=== PATIENT | male | born 1940 | race Caucasian/White ===

== ENCOUNTER 2023-05-18 16:20 | Outpatient (RCR) | payer MEDICARE, BC ==
[~2023-05-18 16:20] MED LIST: AMIODARONE HCL400 MG PO; ATORVASTATIN CA20 MG PO; AZELASTINE137 MCG/Ac NS; CARBIDOPA/LEVODOPA PO; ELIQUIS5 MG PO; FUROSEMIDE20 MG PO; GLUCOPHAGE PO; KETOCONAZOLE 1120 ML TP; SINGULAIR 110 MG/TAB PO; TADALAFIL5 M1 PO
== END 2023-06-17 | disposition home or self-care (01) ==
LOC: PT
DX: G20 Parkinson's disease (principal); R13.10 Dysphagia, unspecified

== ENCOUNTER → 2023-07-27 | Outpatient (CLI) | payer MEDICARE, BC ==
[2023-07-27 17:18] LABS: BASO # 0.04 K/mm3 (0.02-0.10); EOS % 6.6 % (0.0-4.0); HEMATOCRIT 39.6 % (42.0-52.0); HEMOGLOBIN 12.5 g/dL (13.5-18.0); LYMPH# 1.36 K/mm3 (1.50-4.00); MEAN CELL VOLUME 101 fl (78-100); MEAN CORPUSCULAR HEMOGLOBIN 32 pg (27-31); MEAN CORPUSCULAR HGB CONC 32 g/dL (33-37); MEAN PLATELET VOLUME 9.9 fl (7.4-10.4); MONO # 0.85 K/mm3 (0.20-0.80); NEU # 4.84 K/mm3 (1.40-6.50); PLATELET COUNT 181 K/mm3 (130-400); RED BLOOD COUNT 3.94 M/mm3 (4.20-5.60); RED CELL DISTRIBUTION WIDTH 14.3 % (11.5-14.5); WHITE BLOOD COUNT 7.6 K/mm3 (4.8-10.8)
[2023-07-27 17:24] LABS: ALBUMIN 3.9 g/dL (3.4-4.8); POTASSIUM 4.6 mmol/L (3.5-5.1)
[2023-07-27 17:25] LABS: CALCIUM 10.3 mg/dL (8.3-10.5)
[2023-07-27 17:26] LABS: TOTAL PROTEIN 7.1 g/dL (6.2-8.1)
[2023-07-27 17:28] LABS: TOTAL BILIRUBIN 0.3 mg/dL (0.2-1.2)
== END ==
LOC: LAB 16:44
PROVIDERS: Family Medicine
DX: I48.91 Unspecified atrial fibrillation (principal); I25.10 Atherosclerotic heart disease of native coronary artery without angina pectoris; L21.0 Seborrhea capitis; E78.5 Hyperlipidemia, unspecified; G47.33 Obstructive sleep apnea (adult) (pediatric); M85.80 Other specified disorders of bone density and structure, unspecified site; G20.A2 Parkinson's disease without dyskinesia, with fluctuations; E11.9 Type 2 diabetes mellitus without complications; Z86.711 Personal history of pulmonary embolism

== ENCOUNTER → 2023-11-11 | Outpatient (CLI) | payer MEDICARE, BC ==
[2023-11-11 10:04] LABS: BASO # 0.04 K/mm3 (0.02-0.10); EOS # 0.41 K/mm3 (0.04-0.40); EOS % 6.7 % (0.0-4.0); HEMOGLOBIN 12.2 g/dL (13.5-18.0); LYMPH# 1.03 K/mm3 (1.50-4.00); MEAN CELL VOLUME 98 fl (78-100); MEAN CORPUSCULAR HEMOGLOBIN 31 pg (27-31); MEAN CORPUSCULAR HGB CONC 32 g/dL (33-37); MEAN PLATELET VOLUME 9.8 fl (7.4-10.4); MONO # 0.55 K/mm3 (0.20-0.80); PLATELET COUNT 188 K/mm3 (130-400); RED BLOOD COUNT 3.88 M/mm3 (4.20-5.60); RED CELL DISTRIBUTION WIDTH 13.8 % (11.5-14.5); WHITE BLOOD COUNT 6.2 K/mm3 (4.8-10.8)
[2023-11-11 10:15] LABS: ALBUMIN 3.8 g/dL (3.4-4.8)
[2023-11-11 10:17] LABS: CALCIUM 10.1 mg/dL (8.3-10.5)
[2023-11-11 10:18] LABS: TOTAL PROTEIN 6.7 g/dL (6.2-8.1)
[2023-11-11 10:20] LABS: TOTAL BILIRUBIN 0.5 mg/dL (0.2-1.2)
== END ==
LOC: LAB 09:37
PROVIDERS: Family Medicine
DX: E11.9 Type 2 diabetes mellitus without complications (principal); R20.2 Paresthesia of skin

== ENCOUNTER → 2024-03-15 | Outpatient (CLI) | payer MEDICARE, BC ==
[~2024-03-15] MED LIST changes: +COLCHICINE0.6 M2 PO; +DITROPAN 5MG TAB5 MG PO; +METFORMIN HYDR750 MG PO; +MULTAQ400 M1 PO; +PANTOPRAZOLE SO40 MG PO; +VASCEPA1 GM PO
== END ==
LOC: LAB 14:17
DX: E11.9 Type 2 diabetes mellitus without complications (principal); R05.9 Cough, unspecified

== ENCOUNTER 2024-04-15 11:51 | Emergency (ER) | payer MEDICARE, BC ==
[~2024-04-15] VITALS: Ht 180.3 cm; Wt 103.6 kg
[2024-04-15 13:45] VITALS: BP 135/87
[2024-04-15 14:29] LABS: BASO # 0.01 K/mm3 (0.02-0.10); EOS # 0.09 K/mm3 (0.04-0.40); EOS % 1.2 % (0.0-4.0); HEMATOCRIT 26.8 % (42.0-52.0); HEMOGLOBIN 8.4 g/dL (13.5-18.0); LYMPH# 0.92 K/mm3 (1.50-4.00); MEAN CELL VOLUME 100 fl (78-100); MEAN CORPUSCULAR HEMOGLOBIN 31 pg (27-31); MEAN CORPUSCULAR HGB CONC 31 g/dL (33-37); MEAN PLATELET VOLUME 10.4 fl (7.4-10.4); MONO # 0.95 K/mm3 (0.20-0.80); NEU # 5.67 K/mm3 (1.40-6.50); PLATELET COUNT 162 K/mm3 (130-400); RED BLOOD COUNT 2.69 M/mm3 (4.20-5.60); RED CELL DISTRIBUTION WIDTH 14.7 % (11.5-14.5); WHITE BLOOD COUNT 7.7 K/mm3 (4.8-10.8)
[2024-04-15 14:38] LABS: CALCIUM 10.2 mg/dL (8.3-10.5)
== END 2024-04-15 16:53 | disposition home or self-care (01) ==
LOC: ED 11:51
PROVIDERS: Family Medicine
DX: S80.02XA Contusion of left knee, initial encounter (principal); D63.1 Anemia in chronic kidney disease; E11.22 Type 2 diabetes mellitus with diabetic chronic kidney disease; N18.9 Chronic kidney disease, unspecified; Z79.01 Long term (current) use of anticoagulants; W06.XXXA Fall from bed, initial encounter

== ENCOUNTER → 2024-04-18 | Outpatient (CLI) | payer MEDICARE, BC ==
[2024-04-18 09:44] LABS: ALBUMIN 3.7 g/dL (3.4-4.8)
[2024-04-18 09:46] LABS: BASO # 0.02 K/mm3 (0.02-0.10); CALCIUM 10.4 mg/dL (8.3-10.5); EOS # 0.11 K/mm3 (0.04-0.40); EOS % 1.3 % (0.0-4.0); HEMATOCRIT 25.3 % (42.0-52.0); HEMOGLOBIN 7.9 g/dL (13.5-18.0); LYMPH# 0.98 K/mm3 (1.50-4.00); MEAN CELL VOLUME 100 fl (78-100); MEAN CORPUSCULAR HEMOGLOBIN 31 pg (27-31); MEAN CORPUSCULAR HGB CONC 31 g/dL (33-37); MEAN PLATELET VOLUME 9.9 fl (7.4-10.4); MONO # 1.09 K/mm3 (0.20-0.80); NEU # 6.05 K/mm3 (1.40-6.50); PLATELET COUNT 222 K/mm3 (130-400); RED BLOOD COUNT 2.53 M/mm3 (4.20-5.60); RED CELL DISTRIBUTION WIDTH 14.3 % (11.5-14.5); WHITE BLOOD COUNT 8.3 K/mm3 (4.8-10.8)
[2024-04-18 09:47] LABS: TOTAL PROTEIN 6.5 g/dL (6.2-8.1)
[2024-04-18 09:49] LABS: TOTAL BILIRUBIN 0.7 mg/dL (0.2-1.2)
== END ==
LOC: LAB 09:19
PROVIDERS: Family Medicine
DX: N17.9 Acute kidney failure, unspecified (principal); D64.9 Anemia, unspecified

== ENCOUNTER → 2024-04-19 | Outpatient (CLI) | payer MEDICARE, BC ==
[2024-04-19 14:57] LABS: BASO # 0.04 K/mm3 (0.02-0.10); EOS % 2.4 % (0.0-4.0); HEMOGLOBIN 9.3 g/dL (13.5-18.0); LYMPH# 1.05 K/mm3 (1.50-4.00); MEAN CELL VOLUME 96 fl (78-100); MEAN CORPUSCULAR HEMOGLOBIN 31 pg (27-31); MEAN CORPUSCULAR HGB CONC 32 g/dL (33-37); MEAN PLATELET VOLUME 9.3 fl (7.4-10.4); NEU # 5.68 K/mm3 (1.40-6.50); PLATELET COUNT 221 K/mm3 (130-400); RED BLOOD COUNT 3.03 M/mm3 (4.20-5.60); RED CELL DISTRIBUTION WIDTH 15.6 % (11.5-14.5); WHITE BLOOD COUNT 8.3 K/mm3 (4.8-10.8)
[2024-04-19 15:04] LABS: ALBUMIN 3.5 g/dL (3.4-4.8); SODIUM 137 mmol/L (136-145)
[2024-04-19 15:05] LABS: CALCIUM 10.3 mg/dL (8.3-10.5)
[2024-04-19 15:06] LABS: GLUCOSE 141 mg/dL (75-110); TOTAL PROTEIN 6.3 g/dL (6.2-8.1)
[2024-04-19 15:08] LABS: TOTAL BILIRUBIN 0.8 mg/dL (0.2-1.2)
[2024-04-19 15:12] LABS: AST-SGOT 11 U/L (5-34)
[2024-04-19 15:24] LABS: ALT/SGPT < 6 U/L (0-55); CARBON DIOXIDE 17 mmol/L (23-31)
== END ==
LOC: LAB 14:43
PROVIDERS: Family Medicine
DX: N17.9 Acute kidney failure, unspecified (principal); D64.9 Anemia, unspecified

== ENCOUNTER → 2024-04-25 | Outpatient (CLI) | payer MEDICARE, BC ==
[2024-04-25 16:24] LABS: BASO # 0.03 K/mm3 (0.02-0.10); EOS # 0.39 K/mm3 (0.04-0.40); EOS % 3.7 % (0.0-4.0); HEMATOCRIT 31.1 % (42.0-52.0); HEMOGLOBIN 9.9 g/dL (13.5-18.0); LYMPH# 0.84 K/mm3 (1.50-4.00); MEAN CELL VOLUME 97 fl (78-100); MEAN CORPUSCULAR HEMOGLOBIN 31 pg (27-31); MEAN CORPUSCULAR HGB CONC 32 g/dL (33-37); MEAN PLATELET VOLUME 9.1 fl (7.4-10.4); MONO # 0.88 K/mm3 (0.20-0.80); NEU # 8.33 K/mm3 (1.40-6.50); PLATELET COUNT 301 K/mm3 (130-400); RED BLOOD COUNT 3.21 M/mm3 (4.20-5.60); RED CELL DISTRIBUTION WIDTH 15.1 % (11.5-14.5); WHITE BLOOD COUNT 10.6 K/mm3 (4.8-10.8)
[2024-04-25 16:25] LABS: ALBUMIN 3.4 g/dL (3.4-4.8); SODIUM 136 mmol/L (136-145)
[2024-04-25 16:27] LABS: CALCIUM 10.9 mg/dL (8.3-10.5)
[2024-04-25 16:28] LABS: GLUCOSE 166 mg/dL (75-110)
[2024-04-25 16:29] LABS: CARBON DIOXIDE 20 mmol/L (23-31)
[2024-04-25 16:30] LABS: TOTAL BILIRUBIN 0.9 mg/dL (0.2-1.2)
[2024-04-25 16:33] LABS: AST-SGOT 17 U/L (5-34)
[2024-04-25 16:39] LABS: ALT/SGPT < 6 U/L (0-55)
== END ==
LOC: LAB 15:55
PROVIDERS: Family Medicine
DX: N17.9 Acute kidney failure, unspecified (principal); D64.9 Anemia, unspecified

== ENCOUNTER → 2025-01-24 | Outpatient (CLI) | payer MEDICARE, BC | LOC: LAB 15:50 | DX: E11.9 Type 2 diabetes mellitus without complications (principal) ==